=== PATIENT | male | born 1990 | race African-American/Black ===

== ENCOUNTER 2018-03-11 04:05 | Inpatient (IN) | payer MEDICARE ==
[~2018-03-11] VITALS: Ht 188 cm; Wt 147.4 kg
[~2018-03-11 04:05] MED LIST: DIVA-78 PO; OLAN10TA3 PO
[2018-03-11] MEDS ORDERED: HALOPERIDOL LACTATE 5 MG/ML VIAL IM ONE ×3 (04:45→19:30)
[2018-03-11] MEDS ORDERED: LORazepam 2 MG/ML VIAL IM ONE ×3 (04:45→19:30)
[2018-03-11] MEDS ORDERED: DiphenhydrAMINE HCL 50 MG/ML VIAL IM ONE ×3 (04:45→19:30)
[2018-03-11 05:08] LABS: EOSINOPHILS % (AUTO) 3.7 % (1.0-6.0); HEMATOCRIT 37.6 % (41-53); HEMOGLOBIN 12.4 g/dL (13.5-17.5); LYMPHOCYTES # (AUTO) 2.3 K/uL (1.0-4.8); LYMPHOCYTES % (AUTO) 29.8 % (22.0-44.0); MEAN CORPUSCULAR HEMOGLOBIN 27.9 pg (26.0-34.0); MEAN CORPUSCULAR HGB CONC 33.1 G/dL (31.0-37.0); MEAN CORPUSCULAR VOLUME 84 fL (80-100); MONOCYTES # (AUTO) 0.5 K/uL (0.1-1.0); MONOCYTES % (AUTO) 6.1 % (2.0-9.0); NEUTROPHILS # (AUTO) 4.6 K/uL (1.8-7.7); NEUTROPHILS % (AUTO) 59.4 % (40.0-70.0); PLATELET COUNT (AUTO) 255 K/uL (150-450); RED BLOOD CELL COUNT(AUTO) 4.45 MIL/uL (4.50-5.90); RED CELL DISTRIBUTION WIDTH 14.8 % (11.5-14.5)
[2018-03-11] MEDS ORDERED: HALOPERIDOL 5 MG TABLET PO PRN (05:15)
[2018-03-11 05:17] LABS: ANION GAP 10 mmol/L (8-16); CARBON DIOXIDE 26 mmol/L (22-29); CHLORIDE 97 mmol/L (98-107); CREATININE 0.85 mg/dL (0.60-1.30); GLOMERULAR FILTR. RATE CALC > 60 mL/min (>60); GLUCOSE,RANDOM 96 mg/dL (70-110); POTASSIUM 3.3 mmol/L (3.5-5.1); SODIUM SERUM 133 mmol/L (136-145); UREA NITROGEN, BLOOD 10 mg/dL (7-18)
[2018-03-11 05:23] LABS: ALANINE AMINOTRANSFERASE 28 U/L (12-78); ALBUMIN 3.6 g/dL (3.4-5.0); ALKALINE PHOSPHATASE 64 U/L (46-116); ASPARTATE AMINOTRANSFERASE 33 U/L (15-37); BILIRUBIN,TOTAL 0.7 mg/dL (0.1-1.0); TOTAL PROTEIN, SERUM 7.9 g/dL (6.4-8.2)
[2018-03-11 06:42] VITALS: BP 127/92
[2018-03-11] MEDS ORDERED: POTASSIUM CHLORIDE 20 MEQ ER TABLET PO ONE (07:30)
[2018-03-11] MEDS ORDERED: ACETAMINOPHEN 325 MG TABLET PO PRN ×2 (07:30)
[2018-03-11] MEDS ORDERED: CloNIDine HCL 0.1 MG TABLET PO PRN ×2 (07:30)
[2018-03-11] MEDS ORDERED: DOCUSATE SODIUM 100 MG CAPSULE PO PRN ×2 (07:30)
[2018-03-11] MEDS ORDERED: LOPERAMIDE HCL 2 MG CAPSULE PO PRN ×2 (07:30)
[2018-03-11] MEDS ORDERED: ALBUTEROL SULFATE HFA 90 MCG/PUFF 8 GM INHALER IH PRN ×2 (07:30)
[2018-03-11] MEDS ORDERED: MAG HYDROX/AL HYDROX/SIMETH ES 30 ML SUSPENSION UDCUP PO PRN ×2 (07:30)
[2018-03-11] MEDS ORDERED: ONDANSETRON HCL 4 MG TABLET PO PRN ×2 (07:30)
[2018-03-11] MEDS ORDERED: NICOTINE 14 MG/24 HOUR PATCH TD PRN (07:30)
[2018-03-11] MEDS ORDERED: MAGNESIUM HYDROXIDE SUSPENSION 30 ML UDCUP PO PRN ×2 (07:30)
[2018-03-11] MEDS ORDERED: IBUPROFEN 400 MG TABLET PO PRN ×2 (07:30)
[2018-03-11] MEDS ORDERED: GuaiFENesin/D-METHORPHAN [SUGAR-FREE] 200-20MG/10 ML SYRUP UDCUP PO PRN ×2 (07:30)
[2018-03-11] MEDS ORDERED: PETROLATUM,WHITE 71 GM JELLY TP PRN ×2 (07:30)
[2018-03-11 09:00] VITALS: BP 114/79
[2018-03-11] MEDS: LORazepam 2 MG TABLET PO PRN (13:00)
[2018-03-11] MEDS ORDERED: OLANZapine 10 MG TABLET PO ONE (13:15)
[2018-03-11] MEDS: FERROUS SULFATE 325 MG EC TABLET PO SCH (17:00)
[2018-03-11] MEDS: DIVALPROEX SODIUM 500 MG DR TABLET PO SCH (20:26)
[2018-03-11] MEDS: OLANZapine 10 MG TABLET PO SCH (20:26)
[2018-03-12] MEDS: LORazepam 2 MG TABLET PO PRN ×4 (06:11→19:27)
[2018-03-12] MEDS: FERROUS SULFATE 325 MG EC TABLET PO SCH ×2 (06:11→16:06)
[2018-03-12 08:02] VITALS: BP 117/68
[2018-03-12] MEDS: OLANZapine 10 MG TABLET PO SCH ×2 (08:25→20:10)
[2018-03-12] MEDS: DIVALPROEX SODIUM 500 MG DR TABLET PO SCH ×2 (08:25→20:10)
[2018-03-12 08:47] LABS: BASOPHILS % (AUTO) 0.6 % (0.0-2.0); EOSINOPHILS % (AUTO) 6.3 % (1.0-6.0); HEMATOCRIT 40.4 % (41-53); HEMOGLOBIN 13.1 g/dL (13.5-17.5); LYMPHOCYTES # (AUTO) 2.3 K/uL (1.0-4.8); LYMPHOCYTES % (AUTO) 36.7 % (22.0-44.0); MEAN CORPUSCULAR HEMOGLOBIN 27.6 pg (26.0-34.0); MEAN CORPUSCULAR HGB CONC 32.3 G/dL (31.0-37.0); MEAN CORPUSCULAR VOLUME 85 fL (80-100); MONOCYTES # (AUTO) 0.5 K/uL (0.1-1.0); MONOCYTES % (AUTO) 7.5 % (2.0-9.0); NEUTROPHILS % (AUTO) 48.9 % (40.0-70.0); PLATELET COUNT (AUTO) 246 K/uL (150-450); RED BLOOD CELL COUNT(AUTO) 4.74 MIL/uL (4.50-5.90); RED CELL DISTRIBUTION WIDTH 14.9 % (11.5-14.5)
[2018-03-12 08:50] LABS: HEMOGLOBIN A1C 5.3 % (4.5-6.2)
[2018-03-12 09:09] LABS: ALANINE AMINOTRANSFERASE 30 U/L (12-78); ALBUMIN 3.4 g/dL (3.4-5.0); ALKALINE PHOSPHATASE 65 U/L (46-116); ANION GAP 6 mmol/L (8-16); ASPARTATE AMINOTRANSFERASE 27 U/L (15-37); BILIRUBIN,TOTAL 0.5 mg/dL (0.1-1.0); CALCIUM, TOTAL 8.7 mg/dL (8.8-10.5); CARBON DIOXIDE 30 mmol/L (22-29); CHLORIDE 103 mmol/L (98-107); CHOL/HDL RATIO 2.2 (4.2-7.3); CHOLESTEROL 97 mg/dL (131-200); CREATININE 0.75 mg/dL (0.60-1.30); GLOMERULAR FILTR. RATE CALC > 60 mL/min (>60); GLUCOSE,RANDOM 77 mg/dL (70-110); HDL CHOLESTEROL 45 mg/dL (40-60); LDL CHOL (CALC.) 48 mg/dL (0-130); POTASSIUM 3.4 mmol/L (3.5-5.1); SODIUM SERUM 139 mmol/L (136-145); THYROID STIMULATING HORMONE 2.03 uIU/mL (0.36-3.74); TOTAL PROTEIN, SERUM 7.8 g/dL (6.4-8.2); TRIGLYCERIDES 19 mg/dL (15-150); UREA NITROGEN, BLOOD 15 mg/dL (7-18)
[2018-03-12] MEDS: NICOTINE 14 MG/24 HOUR PATCH TD PRN (09:44)
[2018-03-12] MEDS ORDERED: POTASSIUM CHLORIDE 20 MEQ ER TABLET PO ONE (12:00)
[2018-03-12 16:00] VITALS: BP 135/80
[2018-03-12] MEDS: ZOLPIDEM TARTRATE 10 MG TABLET PO PRN (20:09)
[2018-03-13 02:43] VITALS: BP 130/78
[2018-03-13] MEDS ORDERED: HALOPERIDOL LACTATE 5 MG/ML VIAL ONE (02:53)
[2018-03-13] MEDS ORDERED: LORazepam 2 MG/ML VIAL ONE (02:53)
[2018-03-13] MEDS ORDERED: DiphenhydrAMINE HCL 50 MG/ML VIAL ONE (02:53)
[2018-03-13] MEDS ORDERED: LORazepam 2 MG/ML VIAL IM ONE ×3 (03:00→19:30)
[2018-03-13] MEDS ORDERED: DiphenhydrAMINE HCL 50 MG/ML VIAL IM ONE ×3 (03:00→19:30)
[2018-03-13] MEDS ORDERED: HALOPERIDOL LACTATE 5 MG/ML VIAL IM ONE ×3 (03:00→19:30)
[2018-03-13] MEDS: FERROUS SULFATE 325 MG EC TABLET PO SCH ×2 (06:41→16:16)
[2018-03-13] MEDS: OLANZapine 10 MG TABLET PO SCH ×2 (08:18→20:29)
[2018-03-13] MEDS: LORazepam 2 MG TABLET PO PRN ×3 (08:18→16:57)
[2018-03-13] MEDS: DIVALPROEX SODIUM 500 MG DR TABLET PO SCH ×2 (08:18→20:28)
[2018-03-13] MEDS: NICOTINE 14 MG/24 HOUR PATCH TD PRN (08:34)
[2018-03-13 08:54] VITALS: BP 136/82
[2018-03-13 16:00] VITALS: BP 117/80
[2018-03-14 05:44] VITALS: BP 137/87
[2018-03-14] MEDS: LORazepam 2 MG TABLET PO PRN ×3 (06:44→20:19)
[2018-03-14] MEDS: FERROUS SULFATE 325 MG EC TABLET PO SCH ×2 (06:44→16:07)
[2018-03-14 08:02] VITALS: BP 140/83
[2018-03-14] MEDS: DIVALPROEX SODIUM 500 MG DR TABLET PO SCH ×2 (08:08→20:19)
[2018-03-14] MEDS: OLANZapine 10 MG TABLET PO SCH ×2 (08:08→20:20)
[2018-03-14] MEDS: NICOTINE 14 MG/24 HOUR PATCH TD PRN (08:09)
[2018-03-14 16:00] VITALS: BP 136/87
[2018-03-14] MEDS ORDERED: HALOPERIDOL LACTATE 5 MG/ML VIAL IM ONE (16:45)
[2018-03-14] MEDS ORDERED: DiphenhydrAMINE HCL 50 MG/ML VIAL IM ONE (16:45)
[2018-03-14] MEDS: ZOLPIDEM TARTRATE 10 MG TABLET PO PRN (20:19)
[2018-03-15 06:08] VITALS: BP 128/84
[2018-03-15] MEDS: LORazepam 2 MG TABLET PO PRN (06:12)
[2018-03-15] MEDS: FERROUS SULFATE 325 MG EC TABLET PO SCH (06:25)
[2018-03-15 08:17] VITALS: BP 135/78
[2018-03-15] MEDS: DIVALPROEX SODIUM 500 MG DR TABLET PO SCH (09:09)
[2018-03-15] MEDS: OLANZapine 10 MG TABLET PO SCH (09:10)
[2018-03-15] MEDS ORDERED: FERR-89 PO (11:28)
== END 2018-03-15 13:30 | disposition home or self-care (01) | DRG 885 ==
LOC: EMS 04:05 → B3A 05:07
PROVIDERS: ADMIT Psychiatry & Neurology Child & Adolescent Psychiatry; ATTEND Psychiatry & Neurology Psychiatry
DX: F31.2 Bipolar disorder, current episode manic severe with psychotic features (principal); Z68.41 Body mass index [BMI] 40.0-44.9, adult; E87.1 Hypo-osmolality and hyponatremia; F17.210 Nicotine dependence, cigarettes, uncomplicated; D64.9 Anemia, unspecified; E66.01 Morbid (severe) obesity due to excess calories; E87.6 Hypokalemia; F19.10 Other psychoactive substance abuse, uncomplicated; F10.10 Alcohol abuse, uncomplicated; F12.90 Cannabis use, unspecified, uncomplicated; Z59.0 Homelessness; Z78.1 Physical restraint status; Z71.41 Alcohol abuse counseling and surveillance of alcoholic; Z71.51 Drug abuse counseling and surveillance of drug abuser; Z79.899 Other long term (current) drug therapy
CPT/HCPCS: 83036; 84132; 84443; 96372; G0480; J1200; J1630; J2060

== ENCOUNTER 2019-08-01 17:17 | Inpatient (IN) | payer MEDICARE, MEDICAID ==
[~2019-08-01] VITALS: Ht 185.4 cm; Wt 132.7 kg
[~2019-08-01 17:17] MED LIST changes: +DIVA-112 PO; -DIVA-78 PO; +FERR-89 PO
[2019-08-01] MEDS ORDERED: ZOLPIDEM TARTRATE 10 MG TABLET PO PRN (19:00)
[2019-08-01] MEDS ORDERED: HALOPERIDOL 5 MG TABLET PO PRN (19:00)
[2019-08-01 19:49] VITALS: BP 127/82
[2019-08-01] MEDS: LORazepam 2 MG TABLET PO PRN (20:38)
[2019-08-02 00:01] VITALS: BP 137/81
[2019-08-02] MEDS: LORazepam 2 MG TABLET PO PRN ×4 (00:39→17:07)
[2019-08-02 06:23] VITALS: BP 117/68
[2019-08-02 08:04] VITALS: BP 132/85
[2019-08-02] MEDS: NICOTINE 21 MG/24 HOUR PATCH TD SCH (08:26)
[2019-08-02 08:33] LABS: BASOPHILS % (AUTO) 0.4 % (0.0-2.0); HEMATOCRIT 42.3 % (41-53); HEMOGLOBIN 13.8 g/dL (13.5-17.5); LYMPHOCYTES # (AUTO) 1.3 K/uL (1.0-4.8); LYMPHOCYTES % (AUTO) 19.4 % (22.0-44.0); MEAN CORPUSCULAR HEMOGLOBIN 27.8 pg (26.0-34.0); MEAN CORPUSCULAR HGB CONC 32.6 G/dL (31.0-37.0); MEAN CORPUSCULAR VOLUME 85 fL (80-100); MONOCYTES # (AUTO) 0.5 K/uL (0.1-1.0); MONOCYTES % (AUTO) 6.9 % (2.0-9.0); NEUTROPHILS # (AUTO) 4.5 K/uL (1.8-7.7); NEUTROPHILS % (AUTO) 69.3 % (40.0-70.0); PLATELET COUNT (AUTO) 271 K/uL (150-450); RED BLOOD CELL COUNT(AUTO) 4.97 MIL/uL (4.50-5.90); RED CELL DISTRIBUTION WIDTH 14.9 % (11.5-14.5)
[2019-08-02 08:53] LABS: HEMOGLOBIN A1C 5.5 % (3.8-5.6)
[2019-08-02 09:06] LABS: ALANINE AMINOTRANSFERASE 27 U/L (12-78); ALKALINE PHOSPHATASE 73 U/L (46-116); ANION GAP 9 mmol/L (8-16); ASPARTATE AMINOTRANSFERASE 17 U/L (15-37); BILIRUBIN,TOTAL 0.5 mg/dL (0.1-1.0); CALCIUM, TOTAL 9.2 mg/dL (8.8-10.5); CARBON DIOXIDE 25 mmol/L (22-29); CHLORIDE 102 mmol/L (98-107); CHOL/HDL RATIO 2.2 (4.2-7.3); CHOLESTEROL 97 mg/dL (131-200); CREATININE 0.99 mg/dL (0.60-1.30); GLOMERULAR FILTR. RATE CALC > 60 mL/min (>60); GLUCOSE,RANDOM 95 mg/dL (70-110); HCG,QUANTITATIVE < 1 mIU/mL (0-6); HDL CHOLESTEROL 44 mg/dL (40-60); LDL CHOL (CALC.) 49 mg/dL (0-130); POTASSIUM 3.8 mmol/L (3.5-5.1); SODIUM SERUM 136 mmol/L (136-145); THYROID STIMULATING HORMONE 1.28 uIU/mL (0.36-3.74); TOTAL PROTEIN, SERUM 8.7 g/dL (6.4-8.2); TRIGLYCERIDES 19 mg/dL (15-150); UREA NITROGEN, BLOOD 14 mg/dL (7-18)
[2019-08-02 16:14] VITALS: BP 108/72
[2019-08-02] MEDS: TOPIRAMATE 25 MG TABLET PO SCH (16:31)
[2019-08-02] MEDS: TraZODone HCL 150 MG TABLET PO SCH (20:33)
[2019-08-02] MEDS: OLANZapine 10 MG TABLET PO SCH (20:33)
[2019-08-03 01:08] VITALS: BP 129/89
[2019-08-03] MEDS: TOPIRAMATE 25 MG TABLET PO SCH ×2 (08:02→16:05)
[2019-08-03] MEDS: NICOTINE 21 MG/24 HOUR PATCH TD SCH (08:02)
[2019-08-03 08:24] VITALS: BP 136/90
[2019-08-03] MEDS: LORazepam 2 MG TABLET PO PRN ×3 (09:22→20:26)
[2019-08-03 16:00] VITALS: BP 118/65
[2019-08-03] MEDS: OLANZapine 10 MG TABLET PO SCH (21:18)
[2019-08-03] MEDS: TraZODone HCL 150 MG TABLET PO SCH (21:18)
[2019-08-04] VITALS: BP 126/82
[2019-08-04] MEDS: TOPIRAMATE 25 MG TABLET PO SCH ×2 (08:06→16:38)
[2019-08-04] MEDS: LORazepam 2 MG TABLET PO PRN (08:07)
[2019-08-04] MEDS: NICOTINE 21 MG/24 HOUR PATCH TD SCH (08:07)
[2019-08-04 08:39] VITALS: BP 131/82
[2019-08-04 16:27] VITALS: BP 132/85
[2019-08-04] MEDS: OLANZapine 10 MG TABLET PO SCH (20:29)
[2019-08-04] MEDS: TraZODone HCL 150 MG TABLET PO SCH (20:29)
[2019-08-05 00:54] VITALS: BP 102/68
[2019-08-05 08:07] VITALS: BP 133/76
[2019-08-05] MEDS: TOPIRAMATE 25 MG TABLET PO SCH ×2 (08:33→17:13)
[2019-08-05] MEDS: NICOTINE 21 MG/24 HOUR PATCH TD SCH (08:33)
[2019-08-05] MEDS: LORazepam 2 MG TABLET PO PRN (10:28)
[2019-08-05 16:13] VITALS: BP 149/80
== END 2019-08-05 18:29 | disposition home or self-care (01) | DRG 885 ==
LOC: UNDOADMIN 19:03 → B2X 19:03 → UNDODISIN 08-05 18:29
PROVIDERS: ADMIT Psychiatry & Neurology Child & Adolescent Psychiatry; ATTEND Psychiatry & Neurology Child & Adolescent Psychiatry
DX: F31.5 Bipolar disorder, current episode depressed, severe, with psychotic features (principal); R45.851 Suicidal ideations; D64.9 Anemia, unspecified; F12.10 Cannabis abuse, uncomplicated; E66.9 Obesity, unspecified; F10.10 Alcohol abuse, uncomplicated; R10.13 Epigastric pain
CPT/HCPCS: 83036; 84443; 87081

== ENCOUNTER 2021-06-14 10:39 | Inpatient (IN) | payer MEDICARE, MEDICAID ==
[~2021-06-14] VITALS: Ht 185.4 cm; Wt 152.9 kg
[2021-06-14] MEDS ORDERED: MAG HYDROX/AL HYDROX/SIMETH ES 30 ML SUSPENSION UDCUP PO PRN (11:00)
[2021-06-14] MEDS ORDERED: PROMETHAZINE HCL 25 MG TABLET PO PRN (11:00)
[2021-06-14] MEDS ORDERED: OLANZapine 5 MG RAPDIS TABLET PO PRN (11:00)
[2021-06-14] MEDS ORDERED: HydrOXYzine PAMOATE 50 MG CAPSULE PO PRN (11:00)
[2021-06-14] MEDS ORDERED: LOPERAMIDE HCL 2 MG CAPSULE PO PRN (11:00)
[2021-06-14] MEDS ORDERED: TUBERCULIN, PURIFIED PROTEIN DERIVATIVE 5 TU/0.1 ML SYRINGE ID ONE (11:00)
[2021-06-14] MEDS ORDERED: MAGNESIUM HYDROXIDE SUSPENSION 30 ML UDCUP PO PRN (11:00)
[2021-06-14] MEDS ORDERED: GuaiFENesin/D-METHORPHAN [SUGAR-FREE] 200-20MG/10 ML SYRUP UDCUP PO PRN (11:00)
[2021-06-14 16:22] VITALS: BP 133/75
[2021-06-14] MEDS: THIAMINE 100 MG TABLET PO SCH (16:33)
[2021-06-14] MEDS: LORazepam 2 MG TABLET PO PRN (16:33)
[2021-06-14] MEDS: NICOTINE 21 MG/24 HOUR PATCH TD SCH (16:35)
[2021-06-14] MEDS ORDERED: DiphenhydrAMINE HCL 50 MG/ML VIAL IM ONE ×2 (20:00→20:15)
[2021-06-14] MEDS ORDERED: HALOPERIDOL LACTATE 5 MG/ML VIAL IM ONE (20:00)
[2021-06-14] MEDS ORDERED: LORazepam 2 MG/ML VIAL IM ONE ×2 (20:00→20:15)
[2021-06-14] MEDS ORDERED: ChlorproMAZINE HCL 50 MG/2 ML AMP ONE (20:05)
[2021-06-14] MEDS ORDERED: ChlorproMAZINE HCL 50 MG/2 ML AMP IM ONE (20:15)
[2021-06-14] MEDS: OLANZapine 5 MG RAPDIS TABLET PO SCH (21:33)
[2021-06-14] MEDS: MELATONIN 5 MG TABLET PO SCH (21:33)
[2021-06-14] MEDS: DIVALPROEX SODIUM 500 MG ER TABLET PO SCH (21:33)
[2021-06-15] MEDS: LORazepam 2 MG TABLET PO PRN ×2 (06:26→10:15)
[2021-06-15 06:30] VITALS: BP 135/83
[2021-06-15 07:34] LABS: BASOPHILS % (AUTO) 0.4 % (0.0-2.0); EOSINOPHILS % (AUTO) 3.9 % (1.0-6.0); HEMATOCRIT 35.8 % (41-53); HEMOGLOBIN 11.8 g/dL (13.5-17.5); LYMPHOCYTES # (AUTO) 2.2 K/uL (1.0-4.8); LYMPHOCYTES % (AUTO) 31.6 % (22.0-44.0); MEAN CORPUSCULAR HEMOGLOBIN 26.7 pg (26.0-34.0); MEAN CORPUSCULAR HGB CONC 32.9 G/dL (31.0-37.0); MEAN CORPUSCULAR VOLUME 81 fL (80-100); MONOCYTES # (AUTO) 0.5 K/uL (0.1-1.0); MONOCYTES % (AUTO) 7.3 % (2.0-9.0); NEUTROPHILS % (AUTO) 56.8 % (40.0-70.0); PLATELET COUNT (AUTO) 330 K/uL (150-450); RED CELL DISTRIBUTION WIDTH 15.3 % (11.5-14.5)
[2021-06-15 07:52] LABS: ALANINE AMINOTRANSFERASE 21 U/L (12-78); ALBUMIN 2.8 g/dL (3.4-5.0); ALKALINE PHOSPHATASE 58 U/L (46-116); ANION GAP 7 mmol/L (8-16); ASPARTATE AMINOTRANSFERASE 15 U/L (15-37); BILIRUBIN,TOTAL 0.3 mg/dL (0.1-1.0); CALCIUM, TOTAL 8.3 mg/dL (8.8-10.5); CARBON DIOXIDE 28 mmol/L (22-29); CHLORIDE 103 mmol/L (98-107); CHOL/HDL RATIO 2.1 (4.2-7.3); CHOLESTEROL 100 mg/dL (131-200); CREATININE 0.72 mg/dL (0.60-1.30); GLOMERULAR FILTR. RATE CALC > 60 mL/min (>60); GLUCOSE,RANDOM 89 mg/dL (70-110); HDL CHOLESTEROL 48 mg/dL (40-60); POTASSIUM 4.1 mmol/L (3.5-5.1); SODIUM SERUM 138 mmol/L (136-145); TOTAL PROTEIN, SERUM 7.1 g/dL (6.4-8.2); TRIGLYCERIDES 16 mg/dL (15-150); UREA NITROGEN, BLOOD 11 mg/dL (7-18)
[2021-06-15 07:53] LABS: LDL CHOL (CALC.) 49 mg/dL (0-130)
[2021-06-15 08:01] LABS: HEMOGLOBIN A1C 5.9 % (3.8-5.6)
[2021-06-15 08:25] VITALS: BP 129/80
[2021-06-15 08:26] LABS: FREE T4 (FREE THYROXINE) 0.99 ng/dL (0.76-1.46); THYROID STIMULATING HORMONE 2.02 uIU/mL (0.36-3.74)
[2021-06-15] MEDS ORDERED: PALIPERIDONE PALMITATE 234 MG/1.5 ML SYRINGE IM ONE (09:00)
[2021-06-15] MEDS: MULTIVITAMINS WITH MINERALS, THERAPEUTIC TABLET PO SCH (09:06)
[2021-06-15] MEDS: OMEGA-3/DHA/EPA/FISH OIL 1,000 MG CAPSULE PO SCH (09:06)
[2021-06-15] MEDS: FOLIC ACID 1 MG TABLET PO SCH (09:06)
[2021-06-15] MEDS: NALTREXONE HCL 50 MG TABLET PO SCH (09:06)
[2021-06-15] MEDS: THIAMINE 100 MG TABLET PO SCH ×2 (09:07→19:35)
[2021-06-15] MEDS: NICOTINE 21 MG/24 HOUR PATCH TD SCH (09:07)
[2021-06-15] MEDS ORDERED: LORazepam 2 MG/ML VIAL IM ONE (14:30)
[2021-06-15] MEDS ORDERED: DiphenhydrAMINE HCL 50 MG/ML VIAL IM ONE (14:30)
[2021-06-15] MEDS ORDERED: FluPHENAZine HCL 2.5 MG/ML INJ IM ONE (14:30)
[2021-06-15 16:44] VITALS: BP 140/82
[2021-06-15] MEDS: OLANZapine 5 MG RAPDIS TABLET PO SCH (20:43)
[2021-06-15] MEDS: DIVALPROEX SODIUM 500 MG ER TABLET PO SCH (20:43)
[2021-06-15] MEDS: MELATONIN 5 MG TABLET PO SCH (20:43)
[2021-06-16 01:23] VITALS: BP 139/87
[2021-06-16 08:13] VITALS: BP 134/86
[2021-06-16] MEDS: FOLIC ACID 1 MG TABLET PO SCH (08:21)
[2021-06-16] MEDS: NALTREXONE HCL 50 MG TABLET PO SCH (08:21)
[2021-06-16] MEDS: THIAMINE 100 MG TABLET PO SCH ×2 (08:21→17:20)
[2021-06-16] MEDS: NICOTINE 21 MG/24 HOUR PATCH TD SCH (08:21)
[2021-06-16] MEDS: OMEGA-3/DHA/EPA/FISH OIL 1,000 MG CAPSULE PO SCH (08:21)
[2021-06-16] MEDS: MULTIVITAMINS WITH MINERALS, THERAPEUTIC TABLET PO SCH (09:00)
[2021-06-16] MEDS: LORazepam 2 MG TABLET PO PRN ×2 (09:24→21:03)
[2021-06-16] MEDS ORDERED: LORazepam 2 MG/ML VIAL IM ONE (09:30)
[2021-06-16] MEDS ORDERED: ChlorproMAZINE HCL 50 MG/2 ML AMP IM ONE (09:30)
[2021-06-16] MEDS ORDERED: DiphenhydrAMINE HCL 50 MG/ML VIAL IM ONE (09:30)
[2021-06-16 16:14] VITALS: BP 116/83
[2021-06-16] MEDS: DIVALPROEX SODIUM 500 MG ER TABLET PO SCH (20:42)
[2021-06-16] MEDS: MELATONIN 5 MG TABLET PO SCH (20:42)
[2021-06-17 08:10] VITALS: BP 130/75
[2021-06-17] MEDS: OMEGA-3/DHA/EPA/FISH OIL 1,000 MG CAPSULE PO SCH (09:31)
[2021-06-17] MEDS: NALTREXONE HCL 50 MG TABLET PO SCH (09:32)
[2021-06-17] MEDS: FOLIC ACID 1 MG TABLET PO SCH (09:32)
[2021-06-17] MEDS: THIAMINE 100 MG TABLET PO SCH ×2 (09:32→16:16)
[2021-06-17] MEDS: MULTIVITAMINS WITH MINERALS, THERAPEUTIC TABLET PO SCH (09:32)
[2021-06-17] MEDS: NICOTINE 21 MG/24 HOUR PATCH TD SCH (09:39)
[2021-06-17] MEDS: LORazepam 2 MG TABLET PO PRN ×2 (13:31→18:16)
[2021-06-17 16:12] VITALS: BP 134/67
[2021-06-17] MEDS: ZOLPIDEM TARTRATE 10 MG TABLET PO PRN (20:45)
[2021-06-17] MEDS: MELATONIN 5 MG TABLET PO SCH (20:45)
[2021-06-17] MEDS: DIVALPROEX SODIUM 500 MG ER TABLET PO SCH (20:45)
[2021-06-18 06:22] VITALS: BP 113/65
[2021-06-18 08:14] VITALS: BP 108/65
[2021-06-18] MEDS: FOLIC ACID 1 MG TABLET PO SCH (08:23)
[2021-06-18] MEDS: NALTREXONE HCL 50 MG TABLET PO SCH (08:23)
[2021-06-18] MEDS: NICOTINE 21 MG/24 HOUR PATCH TD SCH (08:23)
[2021-06-18] MEDS: MULTIVITAMINS WITH MINERALS, THERAPEUTIC TABLET PO SCH (08:23)
[2021-06-18] MEDS: THIAMINE 100 MG TABLET PO SCH ×2 (08:23→16:44)
[2021-06-18] MEDS: OMEGA-3/DHA/EPA/FISH OIL 1,000 MG CAPSULE PO SCH (08:23)
[2021-06-18 16:06] VITALS: BP 153/84
[2021-06-18] MEDS: LORazepam 2 MG TABLET PO PRN (19:26)
[2021-06-18] MEDS: MELATONIN 5 MG TABLET PO SCH (20:57)
[2021-06-18] MEDS: ACETAMINOPHEN 325 MG TABLET PO PRN (21:03)
[2021-06-18] MEDS: ZOLPIDEM TARTRATE 10 MG TABLET PO PRN (21:58)
[2021-06-19 06:14] VITALS: BP 148/80
[2021-06-19 07:51] LABS: GLUCOMETER DEV NAME(LOC) POC.BV
[2021-06-19] MEDS ORDERED: PALIPERIDONE PALMITATE 156 MG/ML SYRINGE IM ONE (09:00)
[2021-06-19] MEDS: OMEGA-3/DHA/EPA/FISH OIL 1,000 MG CAPSULE PO SCH (09:21)
[2021-06-19] MEDS: THIAMINE 100 MG TABLET PO SCH ×2 (09:21→16:28)
[2021-06-19] MEDS: NALTREXONE HCL 50 MG TABLET PO SCH (09:21)
[2021-06-19] MEDS: FOLIC ACID 1 MG TABLET PO SCH (09:21)
[2021-06-19] MEDS: MULTIVITAMINS WITH MINERALS, THERAPEUTIC TABLET PO SCH (09:21)
[2021-06-19] MEDS: NICOTINE 21 MG/24 HOUR PATCH TD SCH (09:22)
[2021-06-19 10:05] VITALS: BP 111/74
[2021-06-19 16:15] VITALS: BP 153/76
[2021-06-19] MEDS: MELATONIN 5 MG TABLET PO SCH (20:16)
[2021-06-20] MEDS: LORazepam 2 MG TABLET PO PRN (01:10)
[2021-06-20] MEDS: ACETAMINOPHEN 325 MG TABLET PO PRN (01:11)
[2021-06-20 01:22] VITALS: BP 127/79
[2021-06-20] MEDS: THIAMINE 100 MG TABLET PO SCH ×2 (08:18→16:40)
[2021-06-20] MEDS: FOLIC ACID 1 MG TABLET PO SCH (08:18)
[2021-06-20] MEDS: NALTREXONE HCL 50 MG TABLET PO SCH (08:18)
[2021-06-20] MEDS: MULTIVITAMINS WITH MINERALS, THERAPEUTIC TABLET PO SCH (08:18)
[2021-06-20] MEDS: OMEGA-3/DHA/EPA/FISH OIL 1,000 MG CAPSULE PO SCH (08:18)
[2021-06-20] MEDS: NICOTINE 21 MG/24 HOUR PATCH TD SCH (08:19)
[2021-06-20 08:55] VITALS: BP 110/69
[2021-06-20] MEDS ORDERED: OMEG-108 PO (11:41)
[2021-06-20] MEDS ORDERED: NALT50TA PO (11:41)
[2021-06-20] MEDS ORDERED: MELA5TAB40 PO (11:41)
[2021-06-20] MEDS ORDERED: PALI117D IM (11:42)
[2021-06-20 16:13] VITALS: BP 110/50
[2021-06-20] MEDS: MELATONIN 5 MG TABLET PO SCH (20:13)
[2021-06-20] MEDS: ZOLPIDEM TARTRATE 10 MG TABLET PO PRN (20:14)
[2021-06-21 05:58] VITALS: BP 112/65
[2021-06-21] MEDS: MULTIVITAMINS WITH MINERALS, THERAPEUTIC TABLET PO SCH (08:03)
[2021-06-21] MEDS: FOLIC ACID 1 MG TABLET PO SCH (08:03)
[2021-06-21] MEDS: NICOTINE 21 MG/24 HOUR PATCH TD SCH (08:03)
[2021-06-21] MEDS: NALTREXONE HCL 50 MG TABLET PO SCH (08:03)
[2021-06-21] MEDS: THIAMINE 100 MG TABLET PO SCH (08:03)
[2021-06-21] MEDS: OMEGA-3/DHA/EPA/FISH OIL 1,000 MG CAPSULE PO SCH (08:03)
== END 2021-06-21 11:30 | disposition home or self-care (01) | DRG 885 ==
LOC: B2X 14:18
PROVIDERS: ADMIT Psychiatry & Neurology Psychiatry; ATTEND Psychiatry & Neurology Psychiatry
DX: F20.0 Paranoid schizophrenia (principal); Z68.42 Body mass index [BMI] 45.0-49.9, adult; D64.9 Anemia, unspecified; F31.9 Bipolar disorder, unspecified; F41.9 Anxiety disorder, unspecified; E66.01 Morbid (severe) obesity due to excess calories; Z20.822 Contact with and (suspected) exposure to COVID-19; F17.200 Nicotine dependence, unspecified, uncomplicated; Z55.9 Problems related to education and literacy, unspecified; Z59.9 Problem related to housing and economic circumstances, unspecified; Z63.9 Problem related to primary support group, unspecified; Z65.3 Problems related to other legal circumstances; Z91.19 Patient's noncompliance with other medical treatment and regimen; Z88.8 Allergy status to other drugs, medicaments and biological substances
CPT/HCPCS: 80053; 80061; 80164; 83036; 84439; 84443; 85025; 86592; J1200; J2060; J3230; J3490; Q9967

== ENCOUNTER 2021-09-19 04:43 | Emergency (ER) | payer MEDICARE, MEDICAID ==
[~2021-09-19] VITALS: Ht 188 cm; Wt 145.0 kg
[~2021-09-19 04:43] MED LIST changes: -DIVA-112 PO; +DIVA-80 PO; -FERR-89 PO; +MELA5TAB40 PO; +NALT50TA PO; -OLAN10TA3 PO; +OLAN5TAB94 PO; +OMEG-135 PO
[2021-09-19 06:49] LABS: BASOPHILS % (AUTO) 0.9 % (0.0-2.0); HEMATOCRIT 37.1 % (41-53); HEMOGLOBIN 12.2 g/dL (13.5-17.5); LYMPHOCYTES # (AUTO) 2.5 K/uL (1.0-4.8); LYMPHOCYTES % (AUTO) 35.2 % (22.0-44.0); MEAN CORPUSCULAR HEMOGLOBIN 26.8 pg (26.0-34.0); MEAN CORPUSCULAR HGB CONC 32.9 G/dL (31.0-37.0); MEAN CORPUSCULAR VOLUME 81 fL (80-100); MONOCYTES # (AUTO) 0.5 K/uL (0.1-1.0); MONOCYTES % (AUTO) 7.6 % (2.0-9.0); NEUTROPHILS # (AUTO) 3.7 K/uL (1.8-7.7); NEUTROPHILS % (AUTO) 53.3 % (40.0-70.0); PLATELET COUNT (AUTO) 254 K/uL (150-450); RED BLOOD CELL COUNT(AUTO) 4.55 MIL/uL (4.50-5.90); RED CELL DISTRIBUTION WIDTH 16.7 % (11.5-14.5)
[2021-09-19 06:57] LABS: ANION GAP 4 mmol/L (8-16); CALCIUM, TOTAL 8.3 mg/dL (8.8-10.5); CARBON DIOXIDE 30 mmol/L (22-29); CHLORIDE 100 mmol/L (98-107); CREATININE 0.91 mg/dL (0.60-1.30); GLUCOSE,RANDOM 112 mg/dL (70-110); POTASSIUM 3.6 mmol/L (3.5-5.1); SODIUM SERUM 134 mmol/L (136-145); UREA NITROGEN, BLOOD 12 mg/dL (7-18)
[2021-09-19 06:58] LABS: GLOMERULAR FILTR. RATE CALC > 60 mL/min (>60)
[2021-09-19 07:03] LABS: ALANINE AMINOTRANSFERASE 28 U/L (12-78); ALBUMIN 3.5 g/dL (3.4-5.0); ALKALINE PHOSPHATASE 72 U/L (46-116); ASPARTATE AMINOTRANSFERASE 18 U/L (15-37); BILIRUBIN,TOTAL 0.3 mg/dL (0.1-1.0); TOTAL PROTEIN, SERUM 7.3 g/dL (6.4-8.2)
[2021-09-19] MEDS ORDERED: DIAZEPAM 5 MG/ML 2 ML SYRINGE IM ONE (07:30)
[2021-09-19] MEDS ORDERED: NICOTINE 21 MG/24 HOUR PATCH TD ONE (07:30)
[2021-09-19] MEDS ORDERED: DiphenhydrAMINE HCL 50 MG/ML VIAL IM ONE (07:30)
[2021-09-19] MEDS ORDERED: OLANZapine 5 MG TABLET PO ONE (07:30)
[2021-09-19 09:06] VITALS: BP 129/72
[2021-09-19] MEDS ORDERED: OLAN10TA74 PO (09:11)
[2021-09-19] MEDS ORDERED: DIVA-80 PO (09:11)
[2021-09-19] MEDS ORDERED: TRAZ-257 PO (09:11)
== END 2021-09-19 09:13 | disposition home or self-care (01) ==
LOC: EMS 04:46
DX: F25.9 Schizoaffective disorder, unspecified (principal); F31.9 Bipolar disorder, unspecified; F12.90 Cannabis use, unspecified, uncomplicated; Z88.8 Allergy status to other drugs, medicaments and biological substances
CPT/HCPCS: 99284; 80053; 85025; 36415; 96372; G0480; J1885; J1200

== ENCOUNTER 2021-10-30 14:39 | Emergency (ER) | payer MEDICARE, MEDICAID ==
[~2021-10-30] VITALS: Ht 188 cm; Wt 122.7 kg
[~2021-10-30 14:39] MED LIST changes: +OLAN10TA74 PO; +TRAZ-257 PO
[2021-10-30 15:08] VITALS: BP 135/66
[2021-10-30] MEDS ORDERED: OLANZapine 5 MG RAPDIS TABLET PO ONE (15:15)
[2021-10-30] MEDS ORDERED: LORazepam 2 MG TABLET PO ONE (15:15)
[2021-10-30 15:23] LABS: BASOPHILS % (AUTO) 0.7 % (0.0-2.0); EOSINOPHILS % (AUTO) 0.5 % (1.0-6.0); HEMATOCRIT 39.1 % (41-53); HEMOGLOBIN 12.7 g/dL (13.5-17.5); LYMPHOCYTES # (AUTO) 1.3 K/uL (1.0-4.8); LYMPHOCYTES % (AUTO) 16.8 % (22.0-44.0); MEAN CORPUSCULAR HEMOGLOBIN 27.2 pg (26.0-34.0); MEAN CORPUSCULAR HGB CONC 32.5 G/dL (31.0-37.0); MEAN CORPUSCULAR VOLUME 84 fL (80-100); MONOCYTES # (AUTO) 0.6 K/uL (0.1-1.0); MONOCYTES % (AUTO) 7.3 % (2.0-9.0); NEUTROPHILS # (AUTO) 5.9 K/uL (1.8-7.7); NEUTROPHILS % (AUTO) 74.7 % (40.0-70.0); PLATELET COUNT (AUTO) 269 K/uL (150-450); RED BLOOD CELL COUNT(AUTO) 4.68 MIL/uL (4.50-5.90)
[2021-10-30 15:36] LABS: ALANINE AMINOTRANSFERASE 21 U/L (12-78); ALKALINE PHOSPHATASE 62 U/L (46-116); ANION GAP 13 mmol/L (8-16); ASPARTATE AMINOTRANSFERASE 21 U/L (15-37); BILIRUBIN,TOTAL 0.7 mg/dL (0.1-1.0); CARBON DIOXIDE 23 mmol/L (22-29); CHLORIDE 96 mmol/L (98-107); CREATININE 0.98 mg/dL (0.60-1.30); GLUCOSE,RANDOM 120 mg/dL (70-110); SODIUM SERUM 132 mmol/L (136-145); TOTAL PROTEIN, SERUM 8.2 g/dL (6.4-8.2); UREA NITROGEN, BLOOD 12 mg/dL (7-18)
[2021-10-30 15:39] LABS: GLOMERULAR FILTR. RATE CALC > 60 mL/min (>60); VALPROIC ACID < 3 mcg/mL (50-100)
== END 2021-10-30 16:17 | disposition home or self-care (01) ==
LOC: EMS 14:40
DX: F20.9 Schizophrenia, unspecified (principal); F31.9 Bipolar disorder, unspecified; F17.210 Nicotine dependence, cigarettes, uncomplicated; F12.90 Cannabis use, unspecified, uncomplicated; Z88.8 Allergy status to other drugs, medicaments and biological substances
CPT/HCPCS: 99283; 80053; 80164; 85025; 36415; G0480